=== PATIENT | male | born 1965 | race African-American/Black ===

== ENCOUNTER 2017-06-17 10:47 | Emergency (ER) | payer MEDICARE, OTHER ==
[~2017-06-17] VITALS: Ht 170.2 cm; Wt 95.7 kg
--- NOTE | 2017-06-17 11:14 | PHYS DOC ---
Past Medical History Past Medical History: High Cholesterol Past Surgical History: No Surgical History Alcohol Use: None Drug Use: None Adult General Chief Complaint Chief Complaint: DIZZY/LIGHT HEADED HPI HPI Patient is a 51 year old M who presents with dizziness. Patient was eating lunch at [employer] and developed dizziness which she describes the room spinning and some numbness and tingling in his hands bilaterally. Patient denies any chest pain or shortness of breath. Patient's and family convinced him to come the emergency room. Upon arrival to emergency room the symptoms have resolved and the patient will walk without any difficulties. While laying in the bed in the emergency room he has asymptomatic. Patient states he was diagnosed with high cholesterol however he does not take medication for it. Patient has no other sick and past medical history. Patient denies any chest pain or shortness of breath. Patient denies any nausea/vomiting/diarrhea. Patient denies any fevers. Patient has no other complaints. Review of Systems Review of Systems GEN: Denies fevers, chills, sweats HEENT: Denies blurred vision, sore throat CV: Denies chest pain RESP: Denies shortness of air, cough GI: Denies n/v/d NEURO: dizziness MSK: Denies weakness, joint pain/swelling Current Medications Current Medications Current Medications Medications (Trade) Dose Ordered Sig/Jane Start Time Stop Time Status Last Admin Dose Admin Sodium Chloride 1,000 ml @ 1,000 mls/hr 1X ONCE 06/17/17 11:15 06/17/17 12:14 DC 06/17/17 11:29 1,000 MLS/HR Allergies Allergies Allergies Coded Allergies Type Severity Reaction Last Updated Verified No Known Drug Allergies 06/17/17 No Physical Exam Physical Exam GEN.: No apparent distress. Alert and oriented. HEENT: Head is normocephalic, atraumatic NECK: Supple. LUNGS: CTAB. HEART: RRR, S1, S2 present. Peripheral pulses intact ABDOMEN: Soft, nontender. Positive bowel sounds. EXTREMITIES: Without any cyanosis. NEUROLOGIC: Normal speech, normal tone, cranial nerves II through XII are grossly intact without any focal neurological deficits PSYCHIATRIC: Normal affect, normal mood. SKIN: No ulcerations Current Patient Data Vital Signs Vital Signs Date Time Temp Pulse Resp B/P (MAP) Pulse Ox O2 Delivery O2 Flow Rate FiO2 8/31/17 12:45 66 20 122/69 (86) 97 06/17/17 11:30 Room Air 06/17/17 10:54 98.1 98.1 Lab Values Laboratory Tests Test 06/17/17 11:00 06/17/17 11:15 Glucose (Fingerstick) 130 mg/dL (70-99) H White Blood Count 5.8 x10^3/uL (4.0-11.0) Red Blood Count 5.18 x10^6/uL (4.30-5.70) Hemoglobin 14.3 g/dL (13.0-17.5) Hematocrit 40.5 % (39.0-53.0) Mean Corpuscular Volume 78 fL (79-100) L Mean Corpuscular Hemoglobin 28 pg (25-35) Mean Corpuscular Hemoglobin Concent 35 g/dL (31-37) Red Cell Distribution Width 13.8 % (11.5-14.5) Platelet Count 220 x10^3/uL (140-400) Neutrophils (%) (Auto) 66 % (31-73) Lymphocytes (%) (Auto) 26 % (24-48) Monocytes (%) (Auto) 5 % (0-9) Eosinophils (%) (Auto) 1 % (0-3) Basophils (%) (Auto) 1 % (0-3) Neutrophils # (Auto) 3.9 x10^3uL (1.8-7.7) Lymphocytes # (Auto) 1.5 x10^3/uL (1.0-4.8) Monocytes # (Auto) 0.3 x10^3/uL (0.0-1.1) Eosinophils # (Auto) 0.1 x10^3/uL (0.0-0.7) Basophils # (Auto) 0.1 x10^3/uL (0.0-0.2) Sodium Level 141 mmol/L (136-145) Potassium Level 3.7 mmol/L (3.5-5.1) Chloride Level 104 mmol/L (98-107) Carbon Dioxide Level 26 mmol/L (21-32) Anion Gap 11 (6-14) Blood Urea Nitrogen 12 mg/dL (8-26) Creatinine 1.1 mg/dL (0.7-1.3) Estimated GFR (Cockcroft-Gault) 86.1 BUN/Creatinine Ratio 11 (6-20) Glucose Level 113 mg/dL (70-99) H Calcium Level 8.9 mg/dL (8.5-10.1) Total Bilirubin 0.2 mg/dL (0.2-1.0) Aspartate Amino Transferase (AST) 26 U/L (15-37) Alanine Aminotransferase (ALT) 25 U/L (16-63) Alkaline Phosphatase 89 U/L (46-116) Troponin I Quantitative < 0.017 ng/mL (0.000-0.055) Total Protein 7.9 g/dL (6.4-8.2) Albumin 4.1 g/dL (3.4-5.0) Albumin/Globulin Ratio 1.1 (1.0-1.7) Ethyl Alcohol Level < 10 mg/dL (0-10) Laboratory Tests 06/17/17 11:15 Laboratory Tests 06/17/17 11:15 EKG EKG 1109: EKG shows normal sinus rhythm rate of 66 no STEMI [] Radiology/Procedures Radiology/Procedures Chest x-ray NAD CT scan of head without contrast NAD [] Course & Med Decision Making Course & Med Decision Making Pertinent Labs and Imaging studies reviewed. (See chart for details) ED course: Patient was seen and examined emergency room CBC, CMP, troponin, UA, urine drug screen, alcohol level, EKG, CT scan of the head without contrast ordered along with a 1 L normal saline bolus 1252: On reexamination patient feels asymptomatic and wanted to go home. Patient was updated on lab results and CT findings. It was recommended patient follow up with PCP in one to 2 days. Patient was ambulated in the emergency room without any difficulties. MDM: After reviewing the chart, CC/HPI/PMH, physical exam, [lab results], [ radiological results], I do not believe the patient has a emergent medical condition warranting further workup and/or admission. The patient's dizziness was positional related and not consistent which is more consistent with a peripheral disease versus a stroke. I have low suspicion for a cerebellar stroke. Patient is stable for discharge. Additional verbal discharge instructions were provided to the patient and that if symptoms get worse or any new symptoms arise that are worrisome to the patient he is to return to the emergency room immediately [] Dragon Disclaimer Dragon Disclaimer This electronic medical record was generated, in whole or in part, using a voice recognition dictation system. Departure Departure Impression: Primary Impression: Dizziness Disposition: 01 HOME, SELF-CARE Condition: IMPROVED Referrals: ROSA MARIA JC MD (PCP) Patient Instructions: Dizziness, [id number] Additional Instructions: Please follow-up with your family physician in the next one to 2 days and return if symptoms increase. RODERICK DELEON DO Jun 17, 2017 11:14
[2017-06-17] MEDS ORDERED: IV NORMAL SALINE 1000ML BAG 1,000 ML IV ONE (11:15)
[2017-06-17 11:25] LABS: BASO # 0.1 x10^3/uL (0.0-0.2); BASO % 1 % (0-3); EOS % 1 % (0-3); HEMATOCRIT 40.5 % (39.0-53.0); HEMOGLOBIN 14.3 g/dL (13.0-17.5); LYMPH # 1.5 x10^3/uL (1.0-4.8); LYMPH % 26 % (24-48); MEAN CORPUSCULAR HEMOGLOBIN 28 pg (25-35); MEAN CORPUSCULAR HGB CONC 35 g/dL (31-37); MEAN CORPUSCULAR VOLUME 78 fL (79-100); MONO % 5 % (0-9); NEUT % 66 % (31-73); PLATELET COUNT 220 x10^3/uL (140-400); RED BLOOD COUNT 5.18 x10^6/uL (4.30-5.70); RED CELL DISTRIBUTION WIDTH 13.8 % (11.5-14.5); WHITE BLOOD COUNT 5.8 x10^3/uL (4.0-11.0)
--- NOTE | 2017-06-17 11:38 | RAD ---
Exam performed: One view chest. Indication: dizziness Date of Service: 06/17/2017 1:10 PM Comparison: None available. Single AP upright portable view chest findings: Cardiomediastinal silhouette is within limits of normal. No acute infiltrates, effusion or pneumothorax is detected. The bony structures are normal. Impression: No acute cardiopulmonary process is detected.
[2017-06-17 11:39] LABS: CALCIUM 8.9 mg/dL (8.5-10.1); CREATININE 1.1 mg/dL (0.7-1.3); GFR 86.1; POTASSIUM 3.7 mmol/L (3.5-5.1)
[2017-06-17 11:45] LABS: ALBUMIN 4.1 g/dL (3.4-5.0); ALBUMIN/GLOBULIN RATIO 1.1 (1.0-1.7); TOTAL BILIRUBIN 0.2 mg/dL (0.2-1.0); TOTAL PROTEIN 7.9 g/dL (6.4-8.2)
--- NOTE | 2017-06-17 11:53 | EKG ---
[facility] [address] [place] [address] Test Date: 2017-06-17 Test Time: 11:01:05 Pat Name: MELISSA WINSLOW Department: Room: Gender: M Housekeeper Child Care: : 1965 Requested By: RODERICK DELEON Order Number: [id number] Reading MD: Jose Thomas Measurements Intervals [place] Rate: 66 P: 27 [place]: 162 QRS: -26 QRSD: 90 T: 26 QT: 382 QTc: 402 Interpretive Statements SINUS RHYTHM Electronically Signed On 06-22-2017 8:44:17 CDT by Jose Thomas
--- NOTE | 2017-06-17 11:55 | RAD ---
Exam performed: CT scan of the head without contrast. Date of Service: 06/17/17. Comparison: None available. Clinical History: Dizziness off and on for 2 days. Technique: Helical acquisitions are obtained from the foramen magnum to the vertex without intravenous administration of contrast. Findings: The ventricles are midline without evidence of dilatation. Normal valdez-white differentiation is maintained. There is no extra axial fluid collection, intraparenchymal hemorrhage or mass lesion. The visualized portions of the orbits, paranasal sinuses and the mastoid air cells appear clear. The calvarium is intact. Impression: 1. No acute intracranial process detected. PQRS Compliance Statement: One or more of the following individualized dose reduction techniques were utilized for this examination: 1. Automated exposure control 2. Adjustment of the mA and/or kV according to patient size 3. Use of iterative reconstruction technique
[2017-06-17 12:45] VITALS: BP 122/69
[2017-06-17 12:54] LABS: BILIRUBIN,URINE NEGATIVE (NEG); GLUCOSE,URINE NEGATIVE (NEG); NITRITE,URINE NEGATIVE (NEG); PROTEIN,URINE NEGATIVE (NEG-TRACE); UROBILINOGEN,URINE 0.2 mg/dL (0.2 mg/dL)
[2017-06-17 12:58] LABS: BARBITURATES NEG (NEG); BENZODIAZEPINES NEG (NEG); CANNABINOIDS NEG (NEG); COCAINE NEG (NEG); METHADONE NEG (NEG); OPIATES NEG (NEG); PHENCYCLIDINE NEG (NEG)
[2017-06-17 13:01] LABS: BACTERIA,URINE 0 /HPF (0-FEW); RBC,URINE OCC /HPF (0-2); WBC,URINE OCC /HPF (0-4)
[2017-06-17 13:02] LABS: SQUAMOUS EPITHELIAL CELL,UR OCC /LPF
== END 2017-06-17 13:05 | disposition home or self-care (01) ==
LOC: ER 10:47
DX: R42 Dizziness and giddiness (principal); R20.0 Anesthesia of skin; E78.00 Pure hypercholesterolemia, unspecified
CPT/HCPCS: 36415; 70450; 71010; 80053; 80307; 81001; 82962; 84484; 85025; 93005; 96360; 99285; G0480; J7030; G0479

== ENCOUNTER → 2017-11-11 | Outpatient (CLI) | payer MEDICARE, OTHER | END | disposition home or self-care (01) | LOC: RAD 09:03 | DX: M54.5 Low back pain (principal); M25.78 Osteophyte, vertebrae | CPT/HCPCS: 72100 ==

== ENCOUNTER → 2018-01-27 | Outpatient (CLI) | payer MEDICARE, OTHER | END | disposition home or self-care (01) | LOC: PNCL 08:10 | DX: M54.5 Low back pain (principal); R53.83 Other fatigue; Z91.81 History of falling | CPT/HCPCS: G0463 ==